=== PATIENT | female | born 2000 | race Caucasian/White ===

== ENCOUNTER 2022-10-25 14:24 | Observation (INO) ==
[2022-10-25 16:11] LABS: Basophils # (auto) 0.04 K/uL (0-0.2); Basophils % (auto) 0.3 %; Eosinophils # (auto) 0.05 K/uL (0-0.50); Eosinophils % (auto) 0.4 %; Hematocrit (blood only) 44.2 % (34.1-44.9); Hemoglobin 15.2 g/dl (12.0-16.0); Immature Granulocytes # (auto) 0.03 K/uL (0.00-0.02); Immature Granulocytes % (auto) 0.3 %; Lymphocytes # (auto) 3.07 K/uL (1.2-3.4); Mean Corpuscular Hemoglobin 28.8 pg (25.0-34.0); Mean Corpuscular Hgb Conc 34.4 g/dL (32.0-36.0); Mean Corpuscular Volume 83.7 fL (80.0-100.0); Mean Platelet Volume 9.3 fL (9.4-12.3); Monocytes # (auto) 0.64 K/uL (0.24-0.82); Monocytes % (auto) 5.4 %; Neutrophils # (auto) 7.98 K/uL (1.4-6.5); Neutrophils % (auto) 67.6 %; Platelet Count 389 K/uL (130-400); RDW Coefficient of Variation 12.4 % (11.5-14.5); RDW Standard Deviation 37.2 fL (36.4-46.3); Red Blood Count 5.28 M/uL (3.93-5.22); White Blood Count 11.81 K/ul (4.8-10.8)
[2022-10-25 16:30] LABS: D Dimer 330 ug/L FEU (0-500); Partial Thromboplastin Ratio 0.9; Partial Thromboplastin Time 26.1 Seconds (21.0-31.0); Prothrombin Time 10.8 Seconds (9.0-12.0)
[2022-10-25 16:37] LABS: Troponin I High Sensitivity 2.5 pg/ml (0-14)
[2022-10-25 16:45] LABS: Albumin Globulin Ratio 1.3 (0.9-2); Albumin Level 4.2 gm/dl (3.4-5.0); BUN Creatinine Ratio 12.9 (10-20); Bilirubin,Total 0.3 mg/dl (0.2-1.0); Calcium 9.4 mg/dl (8.5-10.1); Creatinine Clr Calc Pharmacy 63.4 ml/min; Est GFR (African American) 67.1 ml/min; Est GFR (Non-African American) 57.9 ml/min; Globulin 3.2 gm/dl (2.5-4.0); Potassium 4.2 mmol/L (3.5-5.1); Total Protein 7.4 gm/dl (6.0-8.3)
[2022-10-25] MEDS ORDERED: SODIUM CHLORIDE 0.9% 1000ML 1,000 ML IV ONE (18:23)
[2022-10-25] MEDS ORDERED: FAMOTIDINE 20MG IV PUSH 20 MG/5 ML SYR IV STA (18:39)
[2022-10-25] MEDS ORDERED: ONDANSETRON INJ 2 MG/ML 2 ML VIAL IV STA (18:39)
[2022-10-25] MEDS ORDERED: MoRPHine SULFATE 4 MG/ML 1 ML CARP\\VIAL IV STA (18:39)
--- NOTE | 2022-10-25 18:53 | Emergency Department Note ---
ED Provider Note History of Present Illness Chief Complaint: Chest Pain Stated Complaint: CHEST AND BACK PAIN Time Seen by Provider: 10/25/22 18:22 Home Medications Medication Instructions Recorded Confirmed Type levonorgestrel 0.1 mg-ethinyl 1 tab PO DAILY 10/23/22 10/25/22 History estradiol 20 mcg chewable tablet (Tyblume) spironolactone 50 mg tablet 50 mg PO DAILY 10/23/22 10/25/22 History triamcinolone acetonide 55 mcg 1 spray intranasal DAILY 10/25/22 10/25/22 Hist ory nasal spray aerosol Allergies Allergy/AdvReac Type Severity Reaction Status Date / Time No Known Allergies Allergy Verified 10/23/22 23:08 Past Med/Surg History Medical History No pertinent past medical history Surgical History No history of previous surgery Social History Smoking Status: Never smoker Preferred Language: Israeli Feels Safe at Home: Yes Physical Exam Vital Signs Vital Signs - 24 hr 10/25/22 14:27 Temperature 36.3 C L Temperature Source Temporal Artery Scan Pulse Rate 80 Pulse Rhythm Regular Pulse Strength Normal Respiratory Rate 20 Respiratory Effort / Characteristics Non-Labored Spontaneous Respiratory Depth Normal Respiratory Pattern Regular Blood Pressure 129/78 Blood Pressure Mean 95 Blood Pressure Position Sitting Pulse Oximetry 97 Oxygen Delivery Method Room Air Sepsis Recent Fever Within 48 Hours No Sepsis New/Unexplained Change in Mental Status No Sepsis Action Taken by Nursing No Action Required Course Administered Medications Sodium Chloride (Nss 1000ml) 1,000 mls @ 999 mls/hr IV .Q1H1M ONE Stop: 10/25/22 19:23 Last Admin: 10/25/22 18:43 Dose: 999 mls/hr Documented By: MES Discontinued Medications Famotidine (Pepcid 20mg Iv Push) 20 mg in 5 mls @ 2.5 mls/min IV NOW STA Stop: 10/25/22 18:40 Last Admin: 10/25/22 18:43 Dose: 2.5 mls/min Documented By: MES Morphine Sulfate (Morphine Sulfate 4 Mg/Ml 1 Ml Carp\Vial) 4 mg IV NOW STA Stop: 10/25/22 18:40 Last Admin: 10/25/22 18:43 Dose: 4 mg Documented By: ALYSSIA Ondansetron HCl (Ondansetron Inj 2 Mg/Ml 2 Ml Vial) 4 mg IV NOW STA Stop: 10/25/22 18:40 Last Admin: 10/25/22 18:43 Dose: 4 mg Documented By: ALYSSIA Medical Decision Making Laboratory Data 10/25/22 15:54 10/25/22 15:54 Lab Results 10/25/22 10/25/22 10/25/22 Range/Units 15:54 15:54 15:54 WBC 11.81 H (4.8-10.8) K/ul RBC 5.28 H (3.93-5.22) M/uL Hgb 15.2 (12.0-16.0) g/dl Hct 44.2 (34.1-44.9) % MCV 83.7 (80.0-100.0) fL MCH 28.8 (25.0-34.0) pg MCHC 34.4 (32.0-36.0) g/dL RDW Std Deviation 37.2 (36.4-46.3) fL RDW Coeff of Jossy 12.4 (11.5-14.5) % Plt Count 389 (130-400) K/uL MPV 9.3 L (9.4-12.3) fL Immature Gran % (Auto) 0.3 % Neut % (Auto) 67.6 % Lymph % (Auto) 26.0 % Carver % (Auto) 5.4 % Eos % (Auto) 0.4 % Baso % (Auto) 0.3 % Neut # (Auto) 7.98 H (1.4-6.5) K/uL Lymph # (Auto) 3.07 (1.2-3.4) K/uL Carver # (Auto) 0.64 (0.24-0.82) K/uL Eos # (Auto) 0.05 (0-0.50) K/uL Baso # (Auto) 0.04 (0-0.2) K/uL Immature Gran # (Auto) 0.03 H (0.00-0.02) K/uL PT 10.8 (9.0-12.0) Seconds INR 1.0 (0.9-1.1) APTT 26.1 (21.0-31.0) Seconds PTT Ratio 0.9 D-Dimer 330 (0-500) ug/L FEU Sodium 138 (136-145) mmol/L Potassium 4.2 (3.5-5.1) mmol/L Chloride 103 (98-107) mmol/L Carbon Dioxide 29 (21-32) mmol/L Anion Gap 6 (3-11) BUN 17 (6-23) mg/dl Creatinine 1.32 H D (0.6-1.2) mg/dl Est Cr Clr Drug Dosing 63.4 ml/min Est GFR ( Amer) 67.1 ml/min Est GFR (Non-Af Amer) 57.9 ml/min BUN/Creatinine Ratio 12.9 (10-20) Glucose 102 H (70-99(Fasting)) mg/dl Calcium 9.4 (8.5-10.1) mg/dl Total Bilirubin 0.3 (0.2-1.0) mg/dl AST 23 (13-39) U/L ALT 27 (7-52) U/L Alkaline Phosphatase 51 (34-104) U/L Troponin I High Sens 2.5 (0-14) pg/ml Total Protein 7.4 (6.0-8.3) gm/dl Albumin 4.2 (3.4-5.0) gm/dl Globulin 3.2 (2.5-4.0) gm/dl Albumin/Globulin Ratio 1.3 (0.9-2) Discharge Plan Visit Data Chief Complaint: Chest Pain Stated Complaint: CHEST AND BACK PAIN ED Provider: Bladimir Gibbs Forms Stand Alone Forms: My [facility] Prescriptions Prescriptions: No Action triamcinolone acetonide 55 mcg aerosol,spray 1 spray INTRANASAL DAILY Rx Instructions: 1 spray each nostril daily spironolactone 50 mg tablet 50 mg PO DAILY Tyblume 0.1 mg- 20 mcg tablet,chewable 1 tab PO DAILY Referrals Referrals: [place],[facility] [Primary Care Provider] -
--- NOTE | 2022-10-25 18:58 | Emergency Department Note ---
Impression & Plan Precordial chest pain, Pain on swallowing, LATRELL (acute kidney injury) ED Provider Note NAME: BELLA ECHEVARRIA AGE: 22 SEX: F : 2000 ARRIVES VIA: Walk-In INFORMANT: [Patient] ED PROVIDER(S): [Bladimir Gbibs MD] CHIEF COMPLAINT: Chest pain HISTORY OF PRESENT ILLNESS: The patient is a 22-year-old female who states that 5 days ago in the early a.m. she woke up with pain between her shoulder blades. She did vomit eventually. The pain has moved across to the center of the chest and now seems to be between the center of her breasts and into the back. It hurts to breathe and to swa llow. She can barely even eat it hurts so much when she swallows. She feels the pain is severe. There has been no cough or congestion. She is not truly short of breath. She has never experienced pain like this before. Patient was seen in the ED 2 days ago and her work-up was unrevealing, this included a D-dimer. The pain was felt to be GI related. She has been trying antacids without relief. She did go to [facility] after this ED visit 2 days ago, she was referred back to the ED today for more work-up. PMHx/PSHx: See Below SOCIAL HISTORY: See Below. PHYSICAL EXAM: GENERAL: Patient is in no acute distress. HEENT: No acute trauma, normocephalic atraumatic, mucous membranes moist, no nasal congestion. NECK: No stridor, no adenopathy, no meningismus, trachea is midline. LUNGS: Clear to auscultation bilaterally, no wheeze, no rhonchi, breath sounds equal. HEART: Without murmurs gallops or rubs, regular rate and rhythm. Chest: Tender to the central sternal chest wall, I feel no crepitus ABDOMEN: Soft, nontender, bowel sounds positive, no peritonitis. EXTREMITIES: No cyanosis or edema, full range of motion of all the joints without pain or difficulty, no signs for acute trauma. NEUROLOGIC: Oriented x 3, no acute motor or sensory deficits, no focal weakness. SKIN: No rash, no jaundice, no diaphoresis. DIFFERENTIAL DIAGNOSIS: Musculoskeletal pain, esophageal tear, esophagitis, Sanjuanita-Sood tear, pneumomediastinum, PE, pneumonia, cardiac ischemia, pericarditis, aortic dissection, among others. EMERGENCY DEPARTMENT COURSE/PROCEDURES: Prior/Outside records reviewed: Previous ED visit. ECG per my interpretation: Indication was chest pain. The ECG shows a normal sinus rhythm with some sinus arrhythmia. The rate is 65. There is no ST elevation, no PVCs but the QTc is 422. Continuous Cardiac Monitoring per my interpretation: An order was placed for co ntinuous cardiac monitoring. The monitor shows a rate of 80 with normal sinus rhythm. MEDICAL DECISION MAKING: There is a slight leukocytosis, this could be consistent with infection or just her pain. There was a normal hemoglobin and platelet count. No coagulopathy. D-dimer testing was negative. With a negative D-dimer, PE seemed less likely. There was no concerning electrolyte abnormality. A mild amount of acute kidney injury was noted with a creatinine of 1.32. No worrisome liver enzyme elevation. ECG showed a normal sinus rhythm, no ischemia. Cardiac enzyme testing x1 was not consistent with acute cardiac injury. COVID test returned negative. Chest CT angiogram did not show any evidence for aortic dissection or PE. No mention of mediastinal air. No pneumonia seen. On exam, patient had pain to swallow, she was tender across the anterior chest wall. I did speak with GI. The patient is to be n.p.o. and will likely undergo endoscopy in the morning to better evaluate the esophagus. The patient was given IV saline for hydration, she was given IV lactated Ringer's for hydration. She received IV morphine for pain, IV Zofran for nausea, she was given IV Protonix and IV Pepcid. I did speak with the patient about her findings. I do think she requires further work-up/testing. The cause for the pain is not completely clear. I am concerned about the worsening discomfort and her pain with swallowing. She does have a mild amount of acute kidney injury likely from dehydration from no oral intake. I spoke with case management, the on-call hospitalist was consulted. DISPOSITION: Patient's findings and presentation warrant a hospital stay. Past Med/Surg History Medical History No pertinent past medical history Surgical History No history of previous surgery Social History Smoking Status: Never smoker Preferred Language: Qatari Feels Safe at Home: Yes Allergies Allergies Allergy/AdvReac Type Severity Reaction Status Date / Time No Known Allergies Allergy Verified 10/23/22 23:08 Home Meds Home Medications Medication Instructions Recorded Confirmed levonorgestrel 0.1 mg-ethinyl 1 tab PO DAILY 10/23/22 10/25/22 estradiol 20 mcg chewable tablet (Tyblume) spironolactone 50 mg tablet 50 mg PO DAILY 10/23/22 10/25/22 triamcinolone acetonide 55 mcg 1 spray intranasal DAILY 10/25/22 10/25/22 nasal spray aerosol Results & Data (ED) Vital Signs Vital Signs - 24 hr 10/25/22 14:27 10/25/22 19:18 10/25/22 19:18 Temperature 36.3 C L 36.5 C Temperature Source Temporal Artery Scan Oral Pulse Rate 80 Pulse Rate [Left Finger] 62 Pulse Rhythm Regular Pulse Strength Normal Respiratory Rate 20 18 Respiratory Effort / Characteristics Non-Labored Spontaneous Respiratory Depth Normal Respiratory Pattern Regular Blood Pressure 129/78 Blood Pressure [Left Arm] 124/79 Blood Pressure Mean 95 Blood Pressure Mean [Left Arm] 94 Blood Pressure Position Sitting Blood Pressure Position [Left Arm] Sitting Pulse Oximetry 97 98 98 Oxygen Delivery Method Room Air Room Air Sepsis Recent Fever Within 48 Hours No Sepsis New/Unexplained Change in Mental Status No Sepsis Action Taken by Nursing No Action Required 10/25/22 19:18 10/25/22 22:17 10/25/22 23:46 Temperature Temperature Source Pulse Rate 64 Pulse Rate [Left Finger] 56 L 59 L Pulse Rhythm Pulse Strength Respiratory Rate 18 16 18 Respiratory Effort / Characteristics Respiratory Depth Respiratory Pattern Blood Pressure Blood Pressure [Left Arm] 131/78 134/85 Blood Pressure Mean Blood Pressure Mean [Left Arm] 95 101 Blood Pressure Position Blood Pressure Position [Left Arm] Lying Lying Pulse Oximetry 98 98 98 Oxygen Delivery Method Room Air Room Air Room Air Sepsis Recent Fever Within 48 Hours Sepsis New/Unexplained Change in Mental Status Sepsis Action Taken by Group Home Medications Current Medication List: was personally reviewed by me Laboratory Data Attestation: I reviewed the patient's lab results. 10/25/22 15:54 10/25/22 15:54 Lab Results 10/25/22 10/25/22 10/25/22 Range/Units 15:54 15:54 15:54 WBC 11.81 H (4.8-10.8) K/ul RBC 5.28 H (3.93-5.22) M/uL Hgb 15.2 (12.0-16.0) g/dl Hct 44.2 (34.1-44.9) % MCV 83.7 (80.0-100.0) fL MCH 28.8 (25.0-34.0) pg MCHC 34.4 (32.0-36.0) g/dL RDW Std Deviation 37.2 (36.4-46.3) fL RDW Coeff of Jossy 12.4 (11.5-14.5) % Plt Count 389 (130-400) K/uL MPV 9.3 L (9.4-12.3) fL Immature Gran % (Auto) 0.3 % Neut % (Auto) 67.6 % Lymph % (Auto) 26.0 % Loup % (Auto) 5.4 % Eos % (Auto) 0.4 % Baso % (Auto) 0.3 % Neut # (Auto) 7.98 H (1.4-6.5) K/uL Lymph # (Auto) 3.07 (1.2-3.4) K/uL Loup # (Auto) 0.64 (0.24-0.82) K/uL Eos # (Auto) 0.05 (0-0.50) K/uL Baso # (Auto) 0.04 (0-0.2) K/uL Immature Gran # (Auto) 0.03 H (0.00-0.02) K/uL PT 10.8 (9.0-12.0) Seconds INR 1.0 (0.9-1.1) APTT 26.1 (21.0-31.0) Seconds PTT Ratio 0.9 D-Dimer 330 (0-500) ug/L FEU Sodium 138 (136-145) mmol/L Potassium 4.2 (3.5-5.1) mmol/L Chloride 103 (98-107) mmol/L Carbon Dioxide 29 (21-32) mmol/L Anion Gap 6 (3-11) BUN 17 (6-23) mg/dl Creatinine 1.32 H D (0.6-1.2) mg/dl Est Cr Clr Drug Dosing 63.4 ml/min Est GFR ( Amer) 67.1 ml/min Est GFR (Non-Af Amer) 57.9 ml/min BUN/Creatinine Ratio 12.9 (10-20) Glucose 102 H (70-99(Fasting)) mg/dl Calcium 9.4 (8.5-10.1) mg/dl Total Bilirubin 0.3 (0.2-1.0) mg/dl AST 23 (13-39) U/L ALT 27 (7-52) U/L Alkaline Phosphatase 51 (34-104) U/L Troponin I High Sens 2.5 (0-14) pg/ml Total Protein 7.4 (6.0-8.3) gm/dl Albumin 4.2 (3.4-5.0) gm/dl Globulin 3.2 (2.5-4.0) gm/dl Albumin/Globulin Ratio 1.3 (0.9-2) SARS-CoV-2, RNA, NAAT (NEGATIVE) 10/25/22 Range/Units 20:40 WBC (4.8-10.8) K/ul RBC (3.93-5.22) M/uL Hgb (12.0-16.0) g/dl Hct (34.1-44.9) % MCV (80.0-100.0) fL MCH (25.0-34.0) pg MCHC (32.0-36.0) g/dL RDW Std Deviation (36.4-46.3) fL RDW Coeff of Jossy (11.5-14.5) % Plt Count (130-400) K/uL MPV (9.4-12.3) fL Immature Gran % (Auto) % Neut % (Auto) % Lymph % (Auto) % Loup % (Auto) % Eos % (Auto) % Baso % (Auto) % Neut # (Auto) (1.4-6.5) K/uL Lymph # (Auto) (1.2-3.4) K/uL Loup # (Auto) (0.24-0.82) K/uL Eos # (Auto) (0-0.50) K/uL Baso # (Auto) (0-0.2) K/uL Immature Gran # (Auto) (0.00-0.02) K/uL PT (9.0-12.0) Seconds INR (0.9-1.1) APTT (21.0-31.0) Seconds PTT Ratio D-Dimer (0-500) ug/L FEU Sodium (136-145) mmol/L Potassium (3.5-5.1) mmol/L Chloride (98-107) mmol/L Carbon Dioxide (21-32) mmol/L Anion Gap (3-11) BUN (6-23) mg/dl Creatinine (0.6-1.2) mg/dl Est Cr Clr Drug Dosing ml/min Est GFR ( Amer) ml/min Est GFR (Non-Af Amer) ml/min BUN/Creatinine Ratio (10-20) Glucose (70-99(Fasting)) mg/dl Calcium (8.5-10.1) mg/dl Total Bilirubin (0.2-1.0) mg/dl AST (13-39) U/L ALT (7-52) U/L Alkaline Phosphatase (34-104) U/L Troponin I High Sens (0-14) pg/ml Total Protein (6.0-8.3) gm/dl Albumin (3.4-5.0) gm/dl Globulin (2.5-4.0) gm/dl Albumin/Globulin Ratio (0.9-2) SARS-CoV-2, RNA, NAAT NEGATIVE (NEGATIVE) Administered Medications Morphine Sulfate (Morphine Sulfate 2 Mg/Ml Carp) 2 mg IV Q4H PRN PRN Reason: Severe Pain Stop: 11/08/22 23:27 Last Admin: 10/25/22 23:46 Dose: 2 mg Documented By: Discontinued Medications Sodium Chloride (Nss 1000ml) 1,000 mls @ 999 mls/hr IV .Q1H1M ONE Stop: 10/25/22 19:23 Last Infusion: 10/25/22 21:00 Dose: 0 mls/hr Documented By: Admin: 10/25/22 18:43 Dose: 999 mls/hr Documented By: MES Famotidine (Pepcid 20mg Iv Push) 20 mg in 5 mls @ 2.5 mls/min IV NOW STA Stop: 10/25/22 18:40 Last Admin: 10/25/22 18:43 Dose: 2.5 mls/min Documented By: ALYSSIA Pantoprazole Sodium 80 mg/ (Dextrose) 100 mls @ 400 mls/hr IV ONE STA Stop: 10/25/22 20:18 Last Infusion: 10/25/22 21:22 Dose: 0 mls/hr Documented By: Admin: 10/25/22 20:57 Dose: 400 mls/hr Documented By: ALYSSIA Lactated Ringer's (Lr) 1,000 mls @ 999 mls/hr IV .Q1H1M ONE Stop: 10/25/22 21:22 Last Infusion: 10/25/22 23:25 Dose: 0 mls/hr Documented By: Admin: 10/25/22 22:19 Dose: 999 mls/hr Documented By: ROBERT Ioversol (Optiray 320 500ml) 112 ml IV ONCE ONE Stop: 10/25/22 19:28 Last Admin: 10/25/22 19:27 Dose: 112 ml Documented By: MEGAN Morphine Sulfate (Morphine Sulfate 4 Mg/Ml 1 Ml Carp\Vial) 4 mg IV NOW STA Stop: 10/25/22 18:40 Last Admin: 10/25/22 18:43 Dose: 4 mg Documented By: ALYSSIA Ondansetron HCl (Ondansetron Inj 2 Mg/Ml 2 Ml Vial) 4 mg IV NOW STA Stop: 10/25/22 18:40 Last Admin: 10/25/22 18:43 Dose: 4 mg Documented By: ALYSSIA Imaging Data Radiologist's Impression: Chest CTA 10/25/22 18:23 CT angio chest dissec wo/w con CLINICAL HISTORY: cp, neg thomas thus far--please also look for PE TECHNIQUE: Multidetector row helical CT of the chest was performed before and after injection of IV contrast. Coronal and sagittal reformations were obtained. Automated dose lowering techniques and/or adjustment according to patient size were utilized for this exam. CT DOSE: 599.70 mGy.cm Comparison: Comparison is made to chest radiograph 07/23/2023 FINDINGS: Lungs and pleura: Normal. Heart and pericardium: Heart size is normal. No pericardial effusion. Vessels: No aortic dissection or intramural hematoma is seen. No pulmonary embolus is seen. Mediastinum and derek: Unremarkable. Chest wall and lower neck: Unremarkable. Abdomen: Unremarkable. Bones: Unremarkable. IMPRESSION: No acute abnormality and in particular no evidence of acute aortic injury. No pulmonary embolus is seen. ACT 112: Negative or not required by law. Electronically signed by: Reji Marinelli M.D. 10/25/2022 7:49 PM Discharge Plan Visit Data Chief Complaint: Chest Pain Stated Complaint: CHEST AND BACK PAIN ED Provider: Bladimir Gibbs Patient Disposition: Admitted As Inpatient Condition: Fair Prescriptions Prescriptions: No Action triamcinolone acetonide 55 mcg aerosol,spray 1 spray INTRANASAL DAILY Rx Instructions: 1 spray each nostril daily spironolactone 50 mg tablet 50 mg PO DAILY Tyblume 0.1 mg- 20 mcg tablet,chewable 1 tab PO DAILY
[2022-10-25] MEDS ORDERED: OPTIRAY 320 500ml IV ONE (19:27)
--- NOTE | 2022-10-25 19:51 | CT Scan Report ---
CT angio chest dissec wo/w con CLINICAL HISTORY: cp, neg thomas thus far--please also look for PE TECHNIQUE: Multidetector row helical CT of the chest was performed before and after injection of IV c ontrast. Coronal and sagittal reformations were obtained. Automated dose lowering techniques and/or a djustment according to patient size were utilized for this exam. CT DOSE: 599.70 mGy.cm Comparison: Comparison is made to chest radiograph 07/23/2023 FINDINGS: Lungs and pleura: Normal. Heart and pericardium: Heart size is normal. No pericardial effusion. Vessels: No aortic dissection or intramural hematoma is seen. No pulmonary embolus is seen. Mediastinum and derek: Unremarkable. Chest wall and lower neck: Unremarkable. Abdomen: Unremarkable. Bones: Unremarkable. IMPRESSION: No acute abnormality and in particular no evidence of acute aortic injury. No pulmonary embolus is se en. ACT 112: Negative or not required by law. Electronically signed by: Reji Marinelli M.D. 10/25/2022 7:49 PM
[2022-10-25] MEDS ORDERED: PANTOprazole 80 MG in DEXTROSE 5% 100 ML IV STA (20:04)
[2022-10-25] MEDS ORDERED: LACTATED RINGER'S 1,000 ML IV ONE (20:22)
--- NOTE | 2022-10-25 23:26 | History & Physical Report ---
Date of Service October 25, 2022 Assessment & Plan (1) Chest pain: Plan: 22-year-old woman with no significant past medical history presenting with stabbing chest pain radiating to the back x5 days. Now admitted, stable, and awaiting further diagnostic work-up for suspected esophageal perforation. Chest pain -Consider low risk for cardiac etiology, as chest pain is easily reproducible on exam. -EKGsinus rhythm -Clinical, lab findings (chest pain, odynophagia, slight leukocytosis) suggest esophageal perforation i.e. Boerhaave syndrome. Low concern for infection. * Admitted to [facility] with telemetry. Made n.p.o. * IV Tylenol 1000 mg every 8 hours scheduled * Morphine 2 mg, 1 mg as needed for moderate, mild breakthrough pain respectively * IV Zofran as needed for nausea * IV Protonix 40 mg daily. Can be discontinued once diet is restarted * EGD to be done in the a.m. Elevated creatinine -Likely due to dehydration from anorexia, in turn due to odynophagia. * IV fluids, as above * Trend a.m. labs Code: Full code Dispo: Med-Surg telemetry FEN/GI: NPO LR DVT Prophylaxis: PT/OT: No Consults: History of Present Illness Primary Care Provider: [facility] [place] is a 22-year-old woman who presents to the emergency room for the second time in 2 days with a complaint of stabbing substernal chest pain radiating to her back between the shoulder blades. She reports the pain is worsened with swallowing. She had some nausea at onset without vomiting. Since then, ROS + occasional shortness of breath with moderate exertion. She denies headache, vision changes, dizziness, nausea, vomiting, abdominal pain, constipation, diarrhea, hemoptysis, or melena. She also denies any recent illness, but does note that she was diagnosed with and treated for strep throat x3 weeks ago during finals week last month. In the ED, vitals were within normal limits. Labs were notable for elevated white count of 11.81, slightly increased from her first visit (10.88), and a creatinine of 1.32, up from 0.90. She received IV morphine 4 mg for pain and lactated Ringer's x1 L bolus. On admission, she corroborates ER HPI, adding that she occasionally experienced the sensation of food "getting stuck" in her throat. ROS otherwise negative. Allergies Allergy/AdvReac Type Severity Reaction Status Date / Time No Known Allergies Allergy Verified 10/23/22 23:08 Home Medications Medication Instructions Recorded Confirmed Type levonorgestrel 0.1 mg-ethinyl 1 tab PO DAILY 10/23/22 10/25/22 History estradiol 20 mcg chewable tablet (Tyblume) spironolactone 50 mg tablet 50 mg PO DAILY 10/23/22 10/25/22 History triamcinolone acetonide 55 mcg 1 spray intranasal DAILY 10/25/22 10/25/22 History nasal spray aerosol Magic Mouthwash 300 mL mouthwash 5 ml mucous membrane QID #300 mL 10/26/22 Rx pantoprazole 40 mg tablet,delayed 40 mg PO BID 30 days #60 tabs 10/26/22 Rx release (Protonix) sucralfate 100 mg/mL oral 1 g (10 mL) PO QID 2 weeks #560 mL 10/26/22 Rx suspension (Carafate) Past Med/Surg History Medical History No pertinent past medical history Surgical History No history of previous surgery Social History Smoking Status: Never smoker Hx Alcohol Use: No Hx Substance Use: No Preferred Language: Yi Communication Ability: Effective Electrical Test Engineer Required: No Beliefs That Will Affect Care: None Current Living Situation: Alone Current Living Situation Comment: student Feels Safe at Home: Yes Assistive Devices: None Review of Systems Review of Systems: All systems reviewed & are unremarkable except as noted in HPI & below Physical Exam Physical Exam: General: No acute distress HEENT: PERRLA. Normal conjunctiva, anicteric sclera. Oropharynx normal. Thorax: Moderate midsternal tenderness to palpation. Moderate tenderness to palpation posteriorly between shoulder blades. Skin appears clean, dry, intact, without erythema, swelling or bruising. Respiratory: Normal respiratory effort, CTABL. Cardiovascular: RRR without murmurs, gallops, or rubs. No edema. GI: Soft abdomen with normal bowel sounds heard on auscultation. Nontender x4 quadrants Neuro: Alert and oriented x3. Results & Data Results & Data ([facility]) Vital Signs (Past 12 Hours) Vital Signs Temp Pulse Pulse Resp BP BP Pulse Ox 10/25/22 22:17 56 L 16 131/78 98 10/25/22 19:18 64 18 98 10/25/22 19:18 36.5 C 62 18 124/79 98 10/25/22 19:18 98 10/25/22 14:27 36.3 C L 80 20 129/78 97 O2 Del Method 10/25/22 22:17 Room Air 10/25/22 19:18 Room Air 10/25/22 19:18 10/25/22 19:18 Room Air 10/25/22 14:27 Room Air Supervising Physician Co-Signing Physician Notes Attending addendum: I have physically seen this patient, have supervised the medical residents activities, and agree with the H&P unless as otherwise noted. Assessment and Plan: Severe chest pain- EKG with no acute findings Admit to [facility] with telemetry NPO Pain control with IV Tylenol and IV morphine as noted Zofran 4 mg IV every 6 hours as needed Given Protonix 80 mg IV and famotidine 20 mg IV from the ED Continue Protonix 40 mg IV daily Gastroenterology Dr. Martinez has been consulted, who will perform EGD on patient tomorrow Acute kidney injury- Creatinine 1.32 on admission IV fluids and recheck laboratories in a.m. Remaining orders and notations as noted Resident Activity Tracking Resident Involvement: Resident Care Provided Care Provided: Adult Hospital Medicine (1) Chest pain Chest pain type: unspecified Qualified Code(s): R07.9 - Chest pain, unspecified
[2022-10-25] MEDS ORDERED: ACETAMINOPHEN 1,000 MG/100 ML VIAL IV PRN (23:28)
[2022-10-25] MEDS: MoRPHine SULFATE 2 MG/ML CARP IV PRN (23:46)
[2022-10-26] MEDS ORDERED: LACTATED RINGER'S 1,000 ML IV SCH (00:52)
[2022-10-26] MEDS ORDERED: MoRPHine SULFATE 2 MG/ML CARP IV STA (00:52)
[2022-10-26] MEDS ORDERED: MoRPHine SULFATE 2 MG/ML CARP IV PRN ×2 (00:52)
[2022-10-26] MEDS ORDERED: ONDANSETRON INJ 2 MG/ML 2 ML VIAL IV PRN (05:14)
[2022-10-26] MEDS: ACETAMINOPHEN 1,000 MG/100 ML VIAL IV SCH ×2 (06:02→14:47)
--- NOTE | 2022-10-26 07:21 | Hospitalist Progress Note ---
Date of Service October 26, 2022 Assessment & Plan (1) Chest pain: Plan: 22-year-old woman with no significant past medical history presenting with stabbing chest pain radiating to the back x5 days. Now admitted, stable, and awaiting further diagnostic work-up for suspected esophageal perforation. Chest pain -Consider low risk for cardiac etiology, as chest pain is easily reproducible on exam. -EKGsinus rhythm -Clinical, lab findings (chest pain, odynophagia, slight leukocytosis) suggest esophageal perforation i.e. Boerhaave syndrome. Low concern for infection. * Admitted to [facility] [place] with telemetry. Made n.p.o. * IV Tylenol 1000 mg every 8 hours scheduled * Morphine 2 mg, 1 mg as needed for moderate, mild breakthrough pain respectively * IV Zofran as needed for nausea * IV Protonix 40 mg daily. Can be discontinued once diet is restarted * EGD to be done in the a.m. Elevated creatinine -Likely due to dehydration from anorexia, in turn due to odynophagia. * IV fluids, as above * Trend a.m. labs Code: Full code Dispo: Med-Surg telemetry FEN/GI: NPO LR DVT Prophylaxis: PT/OT: No Consults: Admission and Anticipated Discharge Date Admission Date: October 25, 2022 Results & Data Results & Data ([facility]) Vital Signs (Past 12 Hours) Vital Signs Temp Pulse Pulse Resp BP Pulse Ox O2 Del Method 10/26/22 04:17 36.6 C 65 16 118/81 96 Room Air 10/26/22 04:29 61 10/26/22 01:23 63 18 131/55 L 97 Room Air 10/25/22 23:46 59 L 18 134/85 98 Room Air 10/25/22 22:17 56 L 16 131/78 98 Room Air (1) Chest pain Chest pain type: unspecified Qualified Code(s): R07.9 - Chest pain, unspecified
[2022-10-26 08:14] LABS: Basophils # (auto) 0.03 K/uL (0-0.2); Basophils % (auto) 0.4 %; Eosinophils % (auto) 1.2 %; Hematocrit (blood only) 39.2 % (34.1-44.9); Immature Granulocytes # (auto) 0.02 K/uL (0.00-0.02); Immature Granulocytes % (auto) 0.2 %; Lymphocytes # (auto) 3.92 K/uL (1.2-3.4); Lymphocytes % (auto) 46.7 %; Mean Corpuscular Hemoglobin 28.5 pg (25.0-34.0); Mean Corpuscular Hgb Conc 33.2 g/dL (32.0-36.0); Mean Platelet Volume 9.2 fL (9.4-12.3); Monocytes # (auto) 0.68 K/uL (0.24-0.82); Monocytes % (auto) 8.1 %; Neutrophils # (auto) 3.65 K/uL (1.4-6.5); Neutrophils % (auto) 43.4 %; Platelet Count 285 K/uL (130-400); RDW Coefficient of Variation 12.4 % (11.5-14.5); RDW Standard Deviation 38.2 fL (36.4-46.3); Red Blood Count 4.56 M/uL (3.93-5.22)
[2022-10-26] MEDS ORDERED: TRIAMCINOLONE ACET NASAL SPRAY 10.8ML BTL SCH (09:00)
[2022-10-26] MEDS ORDERED: SPIRONOLACTONE 25 MG TAB PO SCH (09:00)
--- NOTE | 2022-10-26 09:42 | Gastrointestinal Consultation ---
Date of Consultation October 26, 2022 Assessment & Plan (1) Chest pain: (2) Odynophagia: Plan -Keep NPO -Proceed with EGD today -Continue IV Protonix as ordered; can adjust dosing pending results of EGD Supervising Physician Co-Signing Physician Notes Agree with ANABEL Peralta as above Abd: Soft, NT, ND, +BS Continue current therapy and supportive care Proceed with EGD today History of Present Illness Reason for Consultation: "c/f esophageal tear" Attending Physician: Rosalino Tejada DO History of Present Illness Patient is a 22 yo female without significant medical history who has presented to the ED twice in 2 days with complaints of stabbing chest pain with radiation to her back and shoulder blades. She notes the pain is worsened with swallowing. She notes that this has been ongoing for several days but is getting worse. She notes this morning she feels well because she has been NPO. She notes food feeling as though it is stuck in her throat. In the ED, she was noted to have a WBC count of 11.81 and creatinine was bumped to 1.32 but otherwise everything was unremarkable. She denies GI issues in the past. She is a nonsmoker. She does not routinely use NSAIDs. No pertinent family history. She was recently treated for strep throat and then a subsequent bilateral ear infection. No vomiting, hematemesis, melena. LFTs are unremarkable. She is on IV Protonix [address] of her chest on admission was entirely unremarkable. Allergies Allergy/AdvReac Type Severity Reaction Status Date / Time No Known Allergies Allergy Verified 10/23/22 23:08 Home Medications Medication Instructions Recorded Confirmed Type levonorgestrel 0.1 mg-ethinyl 1 tab PO DAILY 10/23/22 10/25/22 History estradiol 20 mcg chewable tablet (Tyblume) spironolactone 50 mg tablet 50 mg PO DAILY 10/23/22 10/25/22 History triamcinolone acetonide 55 mcg 1 spray intranasal DAILY 10/25/22 10/25/22 History nasal spray aerosol Patient History Medical History No pertinent past medical history Surgical History No history of previous surgery Social History Smoking Status: Never smoker Hx Alcohol Use: No Hx Substance Use: No Preferred Language: Zimbabwean Communication Ability: Effective Shoe Shanker Required: No Beliefs That Will Affect Care: None Current Living Situation: Alone Current Living Situation Comment: student Other Information That Helps Us Care for You: No Feels Safe at Home: Yes Safety Concerns: Feels Safe At This Time Assistive Devices: None Review of Systems Constitutional: no fever and no chills Respiratory: no cough and no dyspnea Cardiovascular: no chest pain Gastrointestinal: + dysphagia and + problem reported (odynophagia); no abdominal pain Physical Exam Constitutional: well developed Respiratory: normal respiratory effort Gastrointestinal (Abdomen): normal bowel sounds, soft, nontender, no hepa tosplenomegaly Psychiatric: Orientation: alert and oriented x 3 Results & Data ([facility]) Vital Signs (Past 12 Hours) Vital Signs Temp Pulse Pulse Resp BP Pulse Ox O2 Del Method 10/26/22 09:00 36.6 C 56 L 20 103/71 99 Room Air 10/26/22 04:17 36.6 C 65 16 118/81 96 Room Air 10/26/22 04:29 61 10/26/22 01:23 63 18 131/55 L 97 Room Air 10/25/22 23:46 59 L 18 134/85 98 Room Air 10/25/22 22:17 56 L 16 131/78 98 Room Air PG Care Time/CCT Total # of Minutes Spent Total Time Spent with Patient: Total time spent is greater than 50% in coordination of care (as documented) at patient's floor/unit and/or counseling patient: Coding Level of Care Code INP/OBS CONSULT LVL 4, 60 MIN Diagnoses Chest pain R07.9 Chest pain type: unspecified Odynophagia R13.10 (1) Chest pain Chest pain type: unspecified Qualified Code(s): R07.9 - Chest pain, unspecified
[2022-10-26 10:16] LABS: BUN Creatinine Ratio 10.5 (10-20); Calcium 8.5 mg/dl (8.5-10.1); Creatinine Clr Calc Pharmacy 79.7 ml/min; Est GFR (African American) 88.5 ml/min; Est GFR (Non-African American) 76.4 ml/min; Potassium 4.3 mmol/L (3.5-5.1)
[2022-10-26] MEDS: MoRPHine SULFATE 2 MG/ML CARP IV PRN (10:34)
[2022-10-26] MEDS ORDERED: PANTOprazole 40 MG in SYRINGE 0 ML IV SCH ×2 (11:00→14:00)
--- NOTE | 2022-10-26 11:37 | Electrocardiogram Report ---
Test Reason : Blood Pressure : / mmHG Vent. Rate : 065 BPM Atrial Rate : 065 BPM P-R Int : 116 ms QRS Dur : 078 ms QT Int : 406 ms P-R-T Axes : 048 072 024 degrees QTc Int : 422 ms Poor data quality, interpretation may be adversely affected Normal sinus rhythm with sinus arrhythmia Possible Left atrial enlargement Borderline ECG When compared with ECG of 23-OCT-2022 20:10, No significant change was found Confirmed by Cliff Mckeon ([id number]) on 10/26/2022 11:36:31 AM Referred By: Confirmed By:Cliff Mckeon
--- NOTE | 2022-10-26 13:17 | Anesthesiology Consultation ---
Date of Service October 26, 2022 Assessment & Plan Chart Review Chart Review: Acceptable Risk for Surgery and Patient NOT seen in Pre Admission Testing Consults Requested none ASA ASA1 Proposed Anesthesia Anesthesia Type: MAC Risk / Benefits Reviewed With: PT / POA / Parent / Guardian, Accepts Plan and Informed Consent Obtained History Surgery Operation Date: 10/26/22 16:30 Proposed Procedures p Esophagogastroduodenoscopy Dr Martinez - Faisal Martinez, DO Height/Weight Height: 5 ft 6 in Weight: 59.1 kg Allergies Allergy/AdvReac Type Severity Reaction Status Date / Time No Known Allergies Allergy Verified 10/23/22 23:08 Medications Home Medications Medication Instructions Recorded Confirmed Last Taken levonorgestrel 0.1 mg-ethinyl 1 tab PO DAILY 10/23/22 10/25/22 Unknown estradiol 20 mcg chewable tablet (Tyblume) spironolactone 50 mg tablet 50 mg PO DAILY 10/23/22 10/25/22 Unknown triamcinolone acetonide 55 mcg 1 spray intranasal DAILY 10/25/22 10/25/22 Unknown nasal spray aerosol Active Medications Generic Name Dose Route Start Last Admin Trade Name Freq PRN Reason Stop Dose Admin Acetaminophen 1,000 mg in 100 mls @ 400 mls/hr 10/26/22 06:00 10/26/22 06:21 Ofirmev IV 10/29/22 05:59 Infused Q8H FRANTZ Infusion Lactated Ringer's 1,000 mls @ 125 mls/hr 10/26/22 00:52 10/26/22 10:30 Lr IV 11/25/22 00:51 125 mls/hr .Q8H FRANTZ Infusion Pantoprazole Sodium 40 mg/ 10 mls @ 5 mls/min 10/26/22 11:00 10/26/22 10:31 Syringe IV 11/25/22 10:59 5 mls/min DAILY@1100 FRANTZ Administration Miscellaneous 1 each 10/26/22 08:00 10/26/22 08:38 Tyblume: Order Awaiting Action N/A 11/25/22 07:59 Not Given QS FRANTZ Morphine Sulfate 2 mg 10/25/22 23:28 10/26/22 10:34 Morphine Sulfate 2 Mg/Ml Carp IV 11/08/22 23:27 2 mg Q4H PRN Administration Severe Pain Spironolactone 50 mg 10/26/22 09:00 10/26/22 10:29 Spironolactone 25 Mg Tab PO 11/25/22 08:59 50 mg DAILY FRANTZ Administration Triamcinolone Acetonide 1 sprays 10/26/22 09:00 10/26/22 10:30 Triamcinolone Acet Nasal Vivian 10.8ml Btl NA 11/25/22 08:59 Not Given DAILY FRANTZ NPO Date Last Intake of Fluids: 10/26/22 Time Last Intake of Fluids: 09:00 Date Last Intake of Solids: 10/25/22 Time Last Intake of Solids: 10:00 Past Medical History Medical History No pertinent past medical history Exercise / Class Metabolic Activity 1 > 8 Run/Swim/Ski/Tennis Past Surgical History Surgical History No history of previous surgery Past Anesthesia History No Hx of Anesthesia Complications and No Family Hx of Anesthesia Complications History of PONV No Hx of PONV and No Hx of Motion Sickness Social History Smoking Status: Never smoker Do You Dip or Chew Tobacco: No Hx Alcohol Use: No alcohol intake frequency: a few times a month Hx Substance Use: No Review of Systems ROS Unobtainable: All systems reviewed & are unremarkable except as noted in HPI & below Constitutional: as per Subjective / HPI Eyes: as per Subjective / HPI Ear, Nose, Mouth, Throat: as per Subjective / HPI Respiratory: as per Subjective / HPI Cardiovascular: as per Subjective / HPI Gastrointestinal: + dysphagia Genitourinary (Female): as per Subjective / HPI Musculoskeletal: as per Subjective / HPI Integumentary: as per Subjective / HPI Neurologic: as per Subjective / HPI Psychiatric: as per Subjective / HPI Endocrine: as per Subjective / HPI Hematologic / Lymphatic: as per Subjective / HPI Allergy / Immunological: as per Subjective / HPI Physical Exam Vital Signs Last Vital Signs Temp 36.6 C 10/26/22 09:00 Pulse 56 L 10/26/22 09:00 Resp 20 10/26/22 09:00 BP 103/71 10/26/22 09:00 Pulse Ox 99 10/26/22 09:00 O2 Del Method 10/26/22 09:00 Constitutional WD/WN, vitals as above no acute distress Eyes PERRL, conjunctivae normal, anicteric sclerae ENMT external ear and nose normal, oropharynx normal Mouth: no dentition abnormality Thyromental Distance: > or= 3.5 Finger Breadths Mallampati Class: II Neck trachea midline, no thyromegaly Respiratory normal respiratory effort, lungs clear to auscultation Cardiovascular RRR, no murmur, no edema Musculoskeletal Head/Neck/Chest: normocephalic and head atraumatic Spine: normal cervical ROM and no pain with cervical ROM Extremities: extremities normal to inspection and strength 5/5 throughout; full ROM of extremities Skin no rashes, warm and dry Neurologic moves all extremities Motor/Sensory: no sensory deficit Psychiatric A+Ox3, euthymic affect Testing Laboratory Results 10/26/22 07:49 10/26/22 07:49 PT 10.8 Seconds (9.0-12.0) 10/25/22 15:54 INR 1.0 (0.9-1.1) 10/25/22 15:54 APTT 26.1 Seconds (21.0-31.0) 10/25/22 15:54 10/26/22 12:38 POC Ur Test NEG
[2022-10-26] MEDS ORDERED: ONDANSETRON INJ 2 MG/ML 2 ML VIAL ONE (13:47)
[2022-10-26] MEDS ORDERED: LIDOCAINE 2% MPF LOCAL 5 ML VIAL INFIL ONE (13:47)
[2022-10-26] MEDS ORDERED: PROPOFOL IV EMULSION 10 MG/ML 20 ML VIAL IV ONE (13:47)
--- NOTE | 2022-10-26 13:58 | GI REPORT ---
Patient Name: Waleska Meyers Procedure Date: 10/26/2022 1:27 PM Date of : 2000 Admit Type: Inpatient Age: 22 Gender: Female Attending MD: Faisal Martinez DO, Procedure: Upper GI endoscopy Providers: Faisal Martinez DO Referring MD: Rosalino Tejada Indications: Dysphagia Medicines: Monitored Anesthesia Care Complications: No immediate complications. Estimated Blood Loss: Estimated blood loss: none. Procedure: Pre-Anesthesia Assessment: - Prior to the procedure, a History and Physical was performed, and patient medications and allergies were reviewed. The patient's tolerance of previous anesthesia was also reviewed. The risks and benefits of the procedure and the sedation options and risks were discussed with the patient. All questions were answered, and informed consent was obtained. Prior Anticoagulants: The patient has taken no anticoagulant or antiplatelet agents. ASA Grade Assessment: I - A normal, healthy patient. After reviewing the risks and benefits, the patient was deemed in satisfactory condition to undergo the procedure. After obtaining informed consent, the endoscope was passed under direct vision. Throughout the procedure, the patient's blood pressure, pulse, and oxygen saturations were monitored continuously. The Endoscope was introduced through the mouth, and advanced to the second part of duodenum. The upper GI endoscopy was accomplished without difficulty. The patient tolerated the procedure well. Findings: Few cratered esophageal ulcers with no stigmata of recent bleeding were found 28 cm from the incisors. The largest lesion was 10 mm in largest dimension. Biopsies were taken with a cold forceps for histology. Localized mild inflammation characterized by erythema was found in the gastric antrum. Biopsies were taken with a cold forceps for histology. The examined duodenum was normal. Impression: - Esophageal ulcers with no stigmata of recent bleeding. Biopsied. - Gastritis. Biopsied. - Normal examined duodenum. Recommendation: - [facility]. - Advance diet as tolerated. - Continue present medications. - Await pathology results. Faisal Martinez DO 10/26/2022 1:58:28 PM This report has been signed electronically. Note Initiated On: 10/26/2022 1:27 PM Number of Addenda: 0 I attest to the content of the Intraoperative Record and orders documented therein, exceptions below {[id number]}
--- NOTE | 2022-10-26 14:37 | Anesthesiology Progress Note ---
Date of Service October 26, 2022 Anesthesia Post Procedure Vital Signs Vital Signs: Temp Pulse Pulse Resp BP Pulse Ox O2 Del Method 10/26/22 14:22 57 L 16 127/75 99 Room Air 10/26/22 14:07 64 16 118/69 97 Room Air 10/26/22 13:52 68 16 123/67 97 Room Air 10/26/22 09:00 36.6 C 56 L 20 103/71 99 Room Air 10/26/22 04:17 36.6 C 65 16 118/81 96 Room Air 10/26/22 04:29 61 10/26/22 01:23 63 18 131/55 L 97 Room Air 10/25/22 23:46 59 L 18 134/85 98 Room Air 10/25/22 22:17 56 L 16 131/78 98 Room Air 10/25/22 19:18 64 18 98 Room Air 10/25/22 19:18 36.5 C 62 18 124/79 98 10/25/22 19:18 98 Room Air Pain Intensity Medial Back: Pain Intensity: 4 Transfer of Care Handoff Completed per policy Notes Mental Status: alert / awake / arousable and participated in evaluation Patient Amnestic to Procedure: Yes Nausea / Vomiting: adequately controlled Pain: adequately controlled Airway Patency, RR, SpO2: stable & adequate BP & HR: stable & adequate Hydration State: stable & adequate Anesthetic Complications: no major complications apparent and Pt Satisfied with anesthetic care
[2022-10-26] MEDS ORDERED: FIRST - Mouthwash BLM 119 ML PO SCH (16:00)
[2022-10-26] MEDS ORDERED: SUCRALFATE 1 GM/10 ML UDC PO SCH (17:00)
--- NOTE | 2022-10-26 17:08 | Discharge Summary ---
Date of Service October 26, 2022 Admission HPI Per Admitting Provider Waleska is a 22-year-old woman who presents to the emergency room for the second time in 2 days with a complaint of stabbing substernal chest pain radiating to her back between the shoulder blades. She reports the pain is worsened with swallowing. She had some nausea at onset without vomiting. Since then, ROS + occasional shortness of breath with moderate exertion. She denies headache, vision changes, dizziness, nausea, vomiting, abdominal pain, constipation, diarrhea, hemoptysis, or melena. She also denies any recent illness, but does note that she was diagnosed with and treated for strep throat x3 weeks ago during finals week last month. In the ED, vitals were within normal limits. Labs were notable for elevated white count of 11.81, slightly increased from her first visit (10.88), and a creatinine of 1.32, up from 0.90. She received IV morphine 4 mg for pain and lactated Ringer's x1 L bolus. On admission, she corroborates ER HPI, adding that she occasionally experienced the sensation of food "getting stuck" in her throat. ROS otherwise negative. Admission Exam Per Admitting Provider General: No acute distress HEENT: PERRLA. Normal conjunctiva, anicteric sclera. Oropharynx normal. Thorax: Moderate midsternal tenderness to palpation. Moderate tenderness to palpation posteriorly between shoulder blades. Skin appears clean, dry, intact, without erythema, swelling or bruising. Respiratory: Normal respiratory effort, CTABL. Cardiovascular: RRR without murmurs, gallops, or rubs. No edema. GI: Soft abdomen with normal bowel sounds heard on auscultation. Nontender x4 quadrants Neuro: Alert and oriented x3. Principal Diagnosis esophagitis Discharge Exam Constitutional: well-appearing, no acute distress HEENT: NCAT, no conjunctival injection CV: regular rhythm, no murmur appreciated, extremities well-perfused, no LE edema Resp: CTABL, no wheezes/rales/rhonchi appreciated, no increased work of breathing GI: soft, nondistended, nontender, BS normoactive MSK: no gross deformities appreciated Skin: warm, dry, no rash appreciated Neuro: alert, oriented, no focal neurologic deficit appreciated Discharge Data Allergies Allergy/AdvReac Type Severity Reaction Status Date / Time No Known Allergies Allergy Verified 01/17/23 23:08 Consultations 10/25/22 20:25 ED Decision to Admit Stat 10/26/22 00:52 Consult Gastroenterology Routine Procedures Performed Operation Date: 10/26/22 16:30 Actual Procedures p EGD Biopsy Cytology - Faisal Wood Martinez, DO Ordered Studies 10/25/22 18:23 CT angio chest dissec wo/w con Stat Hospital Course (1) Chest pain: (2) Odynophagia: (3) Esophageal ulcer: Plan Patient was admitted to the hospital for chest pain that started 1 week ago. She describes the pain as stabbing chest pain radiating to the back for 5 days. She initially had work-up for cardiac etiology EKG showed sinus rhythm. CTA showed no pulmonary embolism or any aortic pathology. Patient's vital signs remained stable during admission. Initial concern was Boerhaave syndrome given that patient had some episodes of vomiting. Upon talking to the patient she only had 1 episode prior to chest pain starting. Patient is a 36-cowj-vmc-year-old female who is on the [facility] team. She states that she was recently started a new workout after being off for a long time on . And her symptoms started on Saturday. Patient also states that she has had chronic sinusitis and has been on steroids and multiple antibiotics over the winter. She states that she just had 1 last when she went to the [facility]. She states that she has had issues for with her sinuses in the past and has had a work-up back in [place] where she had a CT of her sinuses taken and no intervention was needed at that time. In terms of concern for Boerhaave syndrome or some other esophageal cause patient had a EGD done during admission. EGD showed esophageal authorizations most likely CMV or HSV. Biopsies were taken of the authorization. Biopsies pending discharge will follow-up with me as outpatient as a new PCP for her in the area and with Dr. Martinez GI. She was sent home with Carafate, Protonix, and mouthwash. In terms of the patient's chest pain, MSK issues also seem to play in part to reason for patient having chest pain. OMT was done bedside prior to discharge by me, Dr. Camejo, direct myofascial release and HVLA to her thoracic. Total Time Total Time Spent Total Time Spent (In Minutes): <30 Discharge Plan Discharge Items Patient Disposition: Home - Self-Care Reason For Visit: CHEST PAIN Discharge Diagnosis: Non-bleeding Esophageal Ulcers Condition on Discharge: Fair Activity: Resume your previous activity Non-emergency contact: Primary Care Provider Call non-emergency contact if: you have any medication questions, your pain is unusual for you and your temperature is above 101.5 Follow-up/Referrals: Faisal Martinez DO [Physician] - [facility] [Primary Care Provider] - Bladimir Camejo DO [Resident] - Diet: Regular Addtl Attending Provider Instructions: You were admitted to the hospital for chest pain for the last week. Cardiac assessment and vascular assessment for benign. Gastroenterology was consulted and an EGD was performed. EGD showed nonbleeding esophageal ulcer and gastritis. Biopsies of your esophageal ulcers were taking during your EGD, will follow up with pathology reports. If you do not hear anything in a week, reach out to my office (Dr. Camejo, ) A discharge summary will be sent to your primary care physician to ensure continuity of care. Please bring this discharge summary with you to your next office appointment so that your provider can review it at that time. Follow-up appointments: * Make a follow-up appointment with your PCP within the next week. It is very important that you follow up with them shortly after discharge from the hospital. * We have requested a follow-up appointment with Dr. Martinez (gastroenterology) within 1 to 2 weeks of discharge. Please call their office if you do not hear from them. Their phone number is [phone]. * Keep all your follow-up appointments as already scheduled. If you cannot make an appointment, notify your provider. Medications: Your medication list has been reviewed and reconciled upon discharge to ensure accuracy and continuity of care. An updated list of all your medications is included with your hospital discharge paperwork. Please review this list closely, and make note of any changes. * We sent a new medication called Protonix to your pharmacy. Take Protonix (40 mg) 1 tab twice a day for a month. * We sent a new medication called Carafate to your pharmacy. Take Carafate (1 g) 4 times a day for 14 days. * We sent a new medication called Magic mouthwash to your pharmacy. Take Magic mouthwash (5 mL) 4 times a day for 14 days. * If you have any issues filling these prescriptions, please call [phone] and ask to leave a message for Dr. Camejo. * Take your medications as instructed; do not skip a dose of your medicines. Make sure all of your doctors know every medicine you are taking (including lhai-yej-xehustl medicines, vitamins, and supplements). Call your primary care provider before taking any new medicines (including over- the-counter medicines, vitamins, and supplements), because some of these may interact with your current medications, or may make your symptoms worse. Tell your primary care provider if you cannot afford your medications. CONTACT YOUR PRIMARY CARE PROVIDER if you experience any of the following: * Worsening of symptoms * Fever, chills, or fatigue * Difficulty following your treatment plan, or difficulty taking medications CALL 911 OR GO TO THE EMERGENCY DEPARTMENT if you experience any of the following: * Sudden, severe abdominal pain or nausea/vomiting * Severe chest pain, or chest pain that radiates (moves) to your jaw or arm * Sudden, severe shortness of breath or difficulty breathing Thank you for allowing us to participate in your care. Pending Studies at Discharge: Yes Studies:: Esophageal ulcer pathology Stand-Alone Forms: My [facility] [employer], Smoking Cessation Medications and DC Order Prescriptions: New pantoprazole [Protonix] 40 mg tablet,delayed release (DR/EC) 40 mg PO BID 30 Days Qty: 60 0RF sucralfate [Carafate] 100 mg/mL suspension 1 g PO QID 14 Days Qty: 560 0RF Magic Mouthwash 300 mL mouthwash 5 ml mucous membrane QID Qty: 300 0RF Rx Instructions: Benadryl 12.5 mg/5 mL oral elixir; Maalox 200 mg-200 mg-20 mg/5 mL oral suspension; Xylocaine Viscous 2 % mucosal solution;[Generic substitution ok] 1:1:1 compound Per 300 mL Continued triamcinolone acetonide 55 mcg aerosol,spray 1 spray INTRANASAL DAILY Rx Instructions: 1 spray each nostril daily spironolactone 50 mg tablet 50 mg PO DAILY Tyblume 0.1 mg- 20 mcg tablet,chewable 1 tab PO DAILY Discharge Orders: Discharge Order (Routine); Ordered 10/26/22 Ordered By: Bladimir Camejo Admission Data Admit Date/Time: 10/25/22 22:46 Attending Provider: Rosalino Tejada Admit Provider: Serena Sumner Primary Care Provider: [facility] Other Providers: Kp Doshi ; Juana Keys ; Faisal Martinez ; Diane Yang ; Leslee Post ; Mariangel Colón ; Isaura Holliday ; Kyle Milton ; Maxx Dao ; Ying Stovall ; Kelly Cheatham ; Troy Baker ; Lindsay Yip ; Beatrice Ortiz ; Elizabeth Michael ; Kallie Adkins ; Andrew De Paz ; Gustavo Barrett ; Jarad Hernandez ; Yahaira Perera ; Dylon Lui Jr Other Interventions: Discharge Summary Assessment (RN) Last Done: 10/26/22 17:29 Supervising Physician Co-Signing Physician Notes I personally examined the patient and verified all tran points of history and exam, discussed case, and agree with decision making with Dr Camejo feels up to getting out of the hospital extensive discussions w pt / family vitals ntoed nad heent nc at mmm breathing unlabored no accesory muscles good effort skin no rashes no pallor or icterus. ost/msk - L>R Tspine paraspinals high tone/tender/decreased ROM - OMT (direct myofascial and HVLA) done by Dr Camejo under my direct supervision - pt tolerated well esophagitis - appearing viral. immunosuppression likely from steroids. protonix BID, magic swizzle, carafate. outpt f/u Tspine somatic dysfunction - OMT as above recurrent sinusitis - not acute now. nasal steroid, nasal irrigation. try to avoid steroids if recurrent infection Resident Activity Tracking Resident Involvement: Resident Care Provided Care Provided: Adult Hospital Medicine
--- NOTE | 2022-10-26 17:41 | Billing Data ---
Date of Service October 26, 2022 Coding Level of Care Code HOSP INP/OBS DISCH 30 MIN/LESS
--- NOTE | 2022-10-26 17:41 | Hospitalist Progress Note ---
Date of Service October 26, 2022 Assessment & Plan Admission and Anticipated Discharge Date Admission Date: October 25, 2022 Results & Data Results & Data ([facility]) Vital Signs (Past 12 Hours) Vital Signs Temp Pulse Resp BP Pulse Ox O2 Del Method 10/26/22 17:29 99.3 F 68 18 109/75 96 10/26/22 16:59 99.3 F 68 18 109/75 96 Room Air 10/26/22 14:22 57 L 16 127/75 99 Room Air 10/26/22 14:07 64 16 118/69 97 Room Air 10/26/22 13:52 68 16 123/67 97 Room Air 10/26/22 09:00 97.9 F 56 L 20 103/71 99 Room Air PG Care Time/CCT Total # of Minutes Spent Total Time Spent with Patient: Total time spent is greater than 50% in coordination of care (as documented) at patient's floor/unit and/or counseling patient: Coding Level of Care Code None CPT Codes Musculoskeletal - Musculoskeletal: 46104 Oste[address] Tr 1-2 Body regions ([id number])
--- NOTE | 2022-10-26 22:49 | Billing Data ---
Date of Service October 26, 2022 Coding Level of Care Code 75524 INT INP/OBS CARE
== END 2022-10-26 17:30 | disposition home or self-care (01) ==
LOC: ED 14:24 → INTOOBSV 22:46 → SUATTDRO 22:46 → EDINP 22:46 → 2N 10-26 00:53